=== PATIENT | female | born 1950 | race African-American/Black ===

== ENCOUNTER → 2017-05-16 | Outpatient (CLI) | payer MEDICARE, SELFPAY ==
--- NOTE | 2017-05-16 12:33 | MAM ---
History: Well woman exam. Date of exam: 05/16/2017 Services provided: Bilateral full field digital screening mammography. CAD, the images were reviewed with R2 computer aided detection. FINDINGS: Glandular tissue is nodular parenchymal contour with increased mammographic density. Comparison with 2013 exam. Stable parenchymal distribution. No dominant mass, architectural distortion or clustered microcalcification. IMPRESSION: Benign exam Recommendation: Routine annual mammography BIRAD CATEGORY: 2 BENIGN Electronically signed by: Tasneem Shah MD 05/16/2017 12:32 PM CDT Workstation: [id number]
== END | disposition home or self-care (01) ==
LOC: MAMMO 11:05
PROVIDERS: ATTEND Nurse Practitioner Family
DX: Z12.31 Encounter for screening mammogram for malignant neoplasm of breast (principal)

== ENCOUNTER → 2017-07-04 | Outpatient (CLI) | payer MEDICARE | END | disposition home or self-care (01) | LOC: YCFC.O 11:06 | PROVIDERS: ATTEND Nurse Practitioner Family | DX: E78.2 Mixed hyperlipidemia (principal); Z13.29 Encounter for screening for other suspected endocrine disorder ==

== ENCOUNTER → 2017-07-12 | Outpatient (CLI) | payer MEDICARE, MEDICAID ==
--- NOTE | 2017-07-15 09:00 | RAD ---
EXAM DESCRIPTION: Thoracic Spine,AP Lateral CLINICAL HISTORY: BACK PAIN. M51.9 FINDINGS/ IMPRESSION: Thoracic spondylosis with multilevel loss of disc height and endplate osteophyte ridging ventrally and right lateral. No fracture or subluxation. Mild kyphosis No lytic or blastic bony lesion Electronically signed by: Shine Gottlieb MD 07/15/2017 8:59 AM CDT
--- NOTE | 2017-07-15 09:04 | RAD ---
EXAM DESCRIPTION: Lumbar Spine 3 Views CLINICAL HISTORY: 67 years Female, BACK PAIN. M51.9 COMPARISON: None. FINDINGS: 3 views of the lumbar spine show vertebral body heights and intervertebral disc spaces to be maintained. Normal alignment of the lumbar spine is seen. Mild facet hypertrophic and degenerative changes from L4 through S1 are seen. Surgical clips from cholecystectomy are noted. There are mild bridging marginal endplate osteophytes at several levels of the lumbar spine. IMPRESSION: Mild disc degenerative changes of the lumbar spine are seen with facet arthropathy from L4 through S1. Electronically signed by: Miles Durham MD 07/15/2017 9:03 AM CDT
== END | disposition home or self-care (01) ==
LOC: RESP 13:52
PROVIDERS: ATTEND Nurse Practitioner Family
DX: M51.9 Unspecified thoracic, thoracolumbar and lumbosacral intervertebral disc disorder (principal); I25.83 Coronary atherosclerosis due to lipid rich plaque

== ENCOUNTER → 2017-11-08 | Outpatient (CLI) | payer MEDICARE, MEDICAID ==
--- NOTE | 2017-11-11 09:11 | RAD ---
EXAM DESCRIPTION: Knee,Left Complete CLINICAL HISTORY: 67 yearsFemale, PAIN COMPARISON: None. IMPRESSION: 3 views of the left knee demonstrate severe changes of osteoarthritis involving all 3 compartments of the knee. The findings are most pronounced in the medial tibiofemoral and patellofemoral compartments, where there is severe narrowing of the joint spaces and large marginal osteophytes. Patchy areas of subchondral sclerosis demonstrated in the medial femoral condyle and medial tibial plateau. There is no evidence of acute fracture or destructive osseous lesion. There is a suprapatellar joint effusion present. If indicated, MRI may further evaluate. Scattered vascular calcifications are present. Electronically signed by: Brian Quinones MD 11/11/2017 9:10 AM [facility]
== END ==
LOC: LAB.O 12:37
PROVIDERS: ATTEND Nurse Practitioner Family
DX: M17.12 Unilateral primary osteoarthritis, left knee (principal); M25.50 Pain in unspecified joint

== ENCOUNTER 2018-07-07 21:44 | Emergency (ER) | payer MEDICARE, MEDICAID ==
--- NOTE | 2018-07-07 22:24 | ED.PDOC ---
History of Present Illness - General Chief Complaint: Cardiovascular Problem Stated Complaint: rapid, irregular heart rate Time Seen by Provider: 07/07/18 21:58 Source: patient Exam Limitations: no limitations - History of Present Illness Initial Comments: Payton Beck 68 y/o female came to ER with feeling of rapid heart rate,chest and back discomfort which started about 2 hours ago took her atenolol about 2030 h tonight.Had been hospitalized recently for new onset a. fib started on NOAC and B-glory. and has cardiology appointment with Dr. Garrett tomorrow 08 July 2018. Timing/Duration: 1-3 hours Activities at Onset: rest Prior Chest Pain/Cardiac Workup: stress test Improving Factors: nothing Worsening Factors: nothing Nitro Today/Relief: no nitro taken today Aspirin Treatment Today: no aspirin today Associated Symptoms: other - see hpi Allergies/Adverse Reactions: Allergies Sulfa Antibiotics Allergy (Verified 07/07/18 21:59) Home Medications: Ambulatory Orders Cyclobenzaprine HCl 10 mg PO BEDTIME 07/04/18 Diclofenac Sodium [Voltaren] 75 mg PO BID 07/04/18 Fluticasone Prop 0.05% Nasal [Flonase Nasal Paia] 50 mcg NA DAILY 07/04/18 Metoprolol Succinate [Metoprolol Succinate ER] 50 mg PO BID 07/04/18 Non-Formulary Medication 1 tablet PO DAILY PRN 07/04/18 Triamterene & Hydrochlorothiaz [Triamterene/Hydrochloroth 37.5-25 mg] 1 tab PO DAILY 07/04/18 amLODIPine BESYLATE [Norvasc] 5 mg PO DAILY 07/04/18 Atorvastatin Calcium [Lipitor] 20 mg PO DAILY #30 tab 07/05/18 Esomeprazole Magnesium [Nexium] 20 mg PO DAILY #30 gra 07/05/18 Rivaroxaban [Xarelto] 20 mg PO DAILY #30 tablet 07/05/18 Review of Systems - Review of Systems Constitutional: States: no symptoms reported EENTM: States: no symptoms reported Respiratory: States: no symptoms reported Cardiology: States: see HPI Gastrointestinal/Abdominal: States: no symptoms reported Genitourinary: States: no symptoms reported Musculoskeletal: States: no symptoms reported Skin: States: no symptoms reported Neurological: States: no symptoms reported Past Medical History (General) - Patient Medical History Hx Seizures: No Hx Stroke: No Hx Dementia: No Hx Asthma: No Hx of COPD: No Hx Cardiac Disorders: Yes - A-Fib Hx Congestive Heart Failure: No Hx Pacemaker: No Hx Hypertension: Yes Hx Thyroid Disease: No Hx Diabetes: No Hx Gastroesophageal Reflux: Yes Hx Renal Disease: No Hx Cancer: No Hx of HIV: No Hx Hepatitis C: No Hx MRSA: No Surgical History: cholecystectomy, other - hyaterectomy - Vaccination History Hx Tetanus, Diphtheria Vaccination: No Hx Influenza Vaccination: No Hx Pneumococcal Vaccination: No - Social History Hx Alcohol Use: No Hx Substance Use: No Hx Physical Abuse: No Hx Emotional Abuse: No Family Medical History - Family History Mother Family History: No Known Hx Family Hypertension: Yes - mom Hx Cardiac Disease: Yes - siblings Hx Family Cancer: Yes - dad-colon Progress - Progress Progress: 07/07/18 23:03 Vital Signs - 8 hr 07/07/18 07/07/18 07/07/18 21:47 22:35 22:56 Temperature 98.4 F Pulse Rate [ 125 H 70 73 monitor] Respiratory 20 18 Rate Blood Pressure 146/86 135/78 [Left Arm] O2 Sat by Pulse 97 97 Oximetry 07/08/18 00:07 After giving Cardizem 25 mg iv and 30 mg po ventricular rate normalized;denies chest discomfort and has appointment with field representative/health education at 10 am tomorrow. - Results/Orders Results/Orders: 07/07/18 22:16 IV Care:Saline Lock per Protoc QSHIFT Telemetry .ONCE EKG Stat Pulse Ox Stat 07/07/18 22:21 EKG .ONCE 07/07/18 22:30 EKG STAT 07/07/18 22:45 EKG STAT Laboratory Results - last 24 hr 07/07/18 07/07/18 07/07/18 22:24 22:24 22:36 WBC 7.2 RBC 5.00 Hgb 14.2 Hct 42.9 MCV 85.8 MCH 28.3 MCHC 33.0 RDW 14.6 H Plt Count 299 MPV 7.2 L Absolute Neuts (auto) 4.00 Absolute Lymphs (auto) 2.30 Absolute Monos (auto) 0.70 Absolute Eos (auto) 0.00 Absolute Basos (auto) 0.10 Neutrophils % 56.2 Lymphocytes % 32.0 Monocytes % 10.3 H Eosinophils % 0.6 L Basophils % 0.9 PT 12.6 H INR 1.26 H PTT (SP) 34.3 H Sodium 137 Potassium 3.6 Chloride 98 L Carbon Dioxide 28 Anion Gap 14.6 BUN 15 Creatinine 1.01 BUN/Creatinine Ratio 14.9 Random Glucose 126 H Serum Osmolality 276.2 Calcium 9.4 Magnesium 1.9 Total Bilirubin 0.6 Direct Bilirubin 0.2 Indirect Bilirubin 0.4 AST 33 ALT 29 Alkaline Phosphatase 68 Creatine Kinase 172 H D CK-MB (CK-2) 2.2 CK-MB (CK-2) % Not Reportable Troponin I < 0.02 B-Natriuretic Peptide 9.1 Serum Total Protein 8.4 H Albumin 4.0 Urine Color Yellow Urine Appearance Clear Urine pH 7.0 Ur Specific Tabiona 1.010 Urine Protein Negative Urine Glucose (UA) Negative Urine Ketones Negative Urine Blood Trace-intact H Urine Nitrite Negative Urine Bilirubin Negative Urine Urobilinogen 0.2 Ur Leukocyte Esterase Negative Urine RBC 3-5 H Urine WBC 1-3 Ur Epithelial Cells 1-3 Urine Bacteria 0 07/07/18 23:28 WBC RBC Hgb Hct MCV MCH MCHC RDW Plt Count MPV Absolute Neuts (auto) Absolute Lymphs (auto) Absolute Monos (auto) Absolute Eos (auto) Absolute Basos (auto) Neutrophils % Lymphocytes % Monocytes % Eosinophils % Basophils % PT INR PTT (SP) Sodium Potassium Chloride Carbon Dioxide Anion Gap BUN Creatinine BUN/Creatinine Ratio Random Glucose Serum Osmolality Calcium Magnesium Total Bilirubin Direct Bilirubin Indirect Bilirubin AST ALT Alkaline Phosphatase Creatine Kinase CK-MB (CK-2) CK-MB (CK-2) % Troponin I < 0.02 B-Natriuretic Peptide Serum Total Protein Albumin Urine Color Urine Appearance Urine pH Ur Specific Tabiona Urine Protein Urine Glucose (UA) Urine Ketones Urine Blood Urine Nitrite Urine Bilirubin Urine Urobilinogen Ur Leukocyte Esterase Urine RBC Urine WBC Ur Epithelial Cells Urine Bacteria - EKG/XRAY/CT EKG: Atrial, Fibrillation Comments: HR-127 - Additional EKG/XRAY/Consults EKG #2: Atrial, Fibrillation Comments: HR-76 Departure - Departure Clinical Impression: Atrial fibrillation with RVR, Chest discomfort Time of Disposition: 00:10 Disposition: Discharge to Home or Self Care Condition: Fair Departure Forms: ED Discharge - Pt. Copy, Patient Portal Self Enrollment Instructions: Medicines for Atrial Fibrillation, Atrial Fibrillation (DC), Atrial Fibrillation, Controlling Your Blood Pressure Through Lifestyle, High Blood Pressure (DC), DASH Diet Referrals: Cassie Mccormick NP [Primary Care Provider] - 1-2 Weeks Home Medications: Ambulatory Orders Cyclobenzaprine HCl 10 mg PO BEDTIME 07/04/18 Diclofenac Sodium [Voltaren] 75 mg PO BID 07/04/18 Fluticasone Prop 0.05% Nasal [Flonase Nasal Paia] 50 mcg NA DAILY 07/04/18 Metoprolol Succinate [Metoprolol Succinate ER] 50 mg PO BID 07/04/18 Non-Formulary Medication 1 tablet PO DAILY PRN 07/04/18 Triamterene & Hydrochlorothiaz [Triamterene/Hydrochloroth 37.5-25 mg] 1 tab PO DAILY 07/04/18 amLODIPine BESYLATE [Norvasc] 5 mg PO DAILY 07/04/18 Atorvastatin Calcium [Lipitor] 20 mg PO DAILY #30 tab 07/05/18 Esomeprazole Magnesium [Nexium] 20 mg PO DAILY #30 gra 07/05/18 Rivaroxaban [Xarelto] 20 mg PO DAILY #30 tablet 07/05/18 Additional Instructions: Return to ER as needed;Keep appointment with field representative/health education Dr. Garrett at 10 am today;
[2018-07-07] MEDS ORDERED: diltiaZEM HCL TAB 30 MG TAB PO ONE (22:41)
[2018-07-08 00:13] VITALS: BP 120/73
[2018-07-08 00:22] VITALS: TEMP 97.8; O2SAT 97
== END 2018-07-08 00:22 | disposition home or self-care (01) ==
LOC: ER 21:44
DX: I48.91 Unspecified atrial fibrillation (principal); R00.0 Tachycardia, unspecified; R07.89 Other chest pain; I10 Essential (primary) hypertension; K21.9 Gastro-esophageal reflux disease without esophagitis; Z79.899 Other long term (current) drug therapy; Z88.2 Allergy status to sulfonamides

== ENCOUNTER 2018-10-29 10:16 | Emergency (ER) | payer MEDICARE, MEDICAID ==
[2018-10-29 10:33] VITALS: TEMP 99.5
--- NOTE | 2018-10-29 10:47 | ED.PDOC ---
History of Present Illness - General Chief Complaint: Cardiovascular Problem Stated Complaint: irregular heart rate Time Seen by Provider: 10/29/18 10:43 Source: patient, RN notes reviewed Exam Limitations: no limitations - History of Present Illness Initial Comments: SHE TOOK HER BP AT HOME AND NOTED THAT THE MONITOR READ IRREGULAR HEART BEAT. SHE MADE AN APPOINTMENT WITH HER PCP AND SAW THE ACCOUNT UNDERWRITER. AN EKG WAS OBTAINED AND NOTED PAC'S AND THE PATIENT WAS SENT HERE FOR ASSESSMENT. SHE VOICES OCCASIONAL SHARP PAIN TO THE CHEST THAT LAST SEVERAL SECONDS AND THEN DISAPPEAR AND ALSO THAT SHE HAS INTERMITTENT ATRIAL FIBRILLATION. HER [facility] IS DR. MARCELL STUBBS. Timing/Duration: days Location: central Activities at Onset: none Prior Chest Pain/Cardiac Workup: no prior chest pain Improving Factors: nothing Worsening Factors: nothing Nitro Today/Relief: no nitro taken today Associated Symptoms: chest pain Allergies/Adverse Reactions: Allergies Sulfa Antibiotics Allergy (Verified 07/07/18 21:59) Home Medications: Ambulatory Orders Cyclobenzaprine HCl 10 mg PO BEDTIME 07/04/18 Diclofenac Sodium [Voltaren] 75 mg PO BID 07/04/18 Fluticasone Prop 0.05% Nasal [Flonase Nasal [place]] 50 mcg NA DAILY 07/04/18 Metoprolol Succinate [Metoprolol Succinate ER] 50 mg PO BID 07/04/18 Non-Formulary Medication 1 tablet PO DAILY PRN 07/04/18 Triamterene & Hydrochlorothiaz [Triamterene/Hydrochloroth 37.5-25 mg] 1 tab PO DAILY 07/04/18 amLODIPine BESYLATE [Norvasc] 5 mg PO DAILY 07/04/18 Atorvastatin Calcium [Lipitor] 20 mg PO DAILY #30 tab 07/05/18 Esomeprazole Magnesium [Nexium] 20 mg PO DAILY #30 gra 07/05/18 Rivaroxaban [Xarelto] 20 mg PO DAILY #30 tablet 07/05/18 Review of Systems - Review of Systems Constitutional: States: no symptoms reported EENTM: States: no symptoms reported Respiratory: States: no symptoms reported Cardiology: States: chest pain, palpitations Gastrointestinal/Abdominal: States: no symptoms reported Genitourinary: States: no symptoms reported Musculoskeletal: States: no symptoms reported Skin: States: no symptoms reported Neurological: States: no symptoms reported Endocrine: States: no symptoms reported Hematologic/Lymphatic: States: no symptoms reported Past Medical History (General) - Patient Medical History Hx Seizures: No Hx Stroke: No Hx Dementia: No Hx Asthma: No Hx of COPD: No Hx Cardiac Disorders: Yes - A-Fib Hx Congestive Heart Failure: No Hx Pacemaker: No Hx Hypertension: Yes Hx Thyroid Disease: No Hx Diabetes: No Hx Gastroesophageal Reflux: Yes Hx Renal Disease: No Hx Cancer: No Hx of HIV: No Hx Hepatitis C: No Hx MRSA: No Surgical History: cholecystectomy, Hysterectomy - Vaccination History Hx Tetanus, Diphtheria Vaccination: No Hx Influenza Vaccination: No Hx Pneumococcal Vaccination: No - Social History Hx Tobacco Use: No Hx Alcohol Use: No Hx Substance Use: No Hx Physical Abuse: No Hx Emotional Abuse: No Family Medical History - Family History Mother Family History: No Known Hx Family Hypertension: Yes - mom Hx Cardiac Disease: Yes - siblings Hx Family Cancer: Yes - dad-colon Physical Exam - Physical Exam General Appearance: Alert, No apparent distress, Well Developed, Well Groomed, Well Hydrated, Well Nourished Eyes, Ears, Nose, Throat Exam: PERRL/EOMI, normal ENT inspection, TMs normal Neck: non-tender, full range of motion, supple, normal inspection Respiratory: chest non-tender, lungs clear, normal breath sounds, no respiratory distress, no accessory muscle use Cardiovascular/Chest: normal peripheral pulses, other - IRREGULAT HEART BEAT Peripheral Pulses: radial,right: 2+, radial,left: 2+ Gastrointestinal/Abdominal: normal bowel sounds, non tender, soft, no organomegaly, no pulsatile mass Extremity: normal range of motion, non-tender, normal inspection, no pedal edema , no calf tenderness Skin Exam: normal color Lymphatic: no adenopathy Progress - Progress Progress: 10/29/18 11:32 THE PATIENT IS ASYMPTOMATIC. THE CXR IS REPORTED: NO ACUTE PROCESS NOTED. EKG: HR OF 81, NJ INTERVAL OF 166, QRS OF 82, QTC OF 439, AXIS OF 55. IMPRESSION: SINUS RHYTHM, SINUS ARRHYTHMIA. 10/29/18 11:46 LABS ARE REPORTED AND NORMAL. WILL DC PATIENT - Results/Orders Results/Orders: 10/29/18 10:45 EKG STAT Laboratory Results WBC 5.3 K/mm3 (4.8-10.8) 10/29/18 10:44 RBC 4.65 M/mm3 (4.20-5.40) 10/29/18 10:44 Hgb 13.2 gm/dL (12.0-16.0) 10/29/18 10:44 Hct 39.7 % (36.0-47.0) 10/29/18 10:44 MCV 85.4 fl (81.0-99.0) 10/29/18 10:44 MCH 28.3 pg (27.0-31.0) 10/29/18 10:44 MCHC 33.2 g/dL (33.0-37.0) 10/29/18 10:44 RDW 14.1 % (11.5-14.5) 10/29/18 10:44 Plt Count 285 K/mm3 (130-400) 10/29/18 10:44 MPV 7.2 fl (7.40-10.4) L 10/29/18 10:44 Absolute Neuts (auto) 3.60 K/uL (1.8-6.8) 10/29/18 10:44 Absolute Lymphs (auto) 1.20 K/uL (1.0-3.4) 10/29/18 10:44 Absolute Monos (auto) 0.40 K/uL (0.2-0.8) 10/29/18 10:44 Absolute Eos (auto) 0.00 K/uL (0.0-0.4) 10/29/18 10:44 Absolute Basos (auto) 0.00 K/uL (0.0-0.1) 10/29/18 10:44 Neutrophils % 68.8 % (42.0-78.0) 10/29/18 10:44 Lymphocytes % 22.8 % (20.0-50.0) 10/29/18 10:44 Monocytes % 7.2 % (2.0-9.0) 10/29/18 10:44 Eosinophils % 0.6 % (1.0-5.0) L 10/29/18 10:44 Basophils % 0.6 % (0.0-2.0) 10/29/18 10:44 Sodium 138 mmol/L (135-145) 10/29/18 10:44 Potassium 3.4 mmol/L (3.6-5.0) L 10/29/18 10:44 Chloride 101 mmol/L (101-111) 10/29/18 10:44 Carbon Dioxide 29 mmol/L (21-31) 10/29/18 10:44 Anion Gap 11.4 (12-18) L 10/29/18 10:44 BUN 11 mg/dL (7-18) 10/29/18 10:44 Creatinine 0.66 mg/dL (0.6-1.3) 10/29/18 10:44 BUN/Creatinine Ratio 16.7 (10-20) 10/29/18 10:44 Random Glucose 127 mg/dL (70-105) H 10/29/18 10:44 Serum Osmolality 276.7 mOsm/L (275-295) 10/29/18 10:44 Calcium 9.1 mg/dL (8.4-10.2) 10/29/18 10:44 Total Bilirubin 0.5 mg/dL (0.2-1.0) 10/29/18 10:44 AST 15 IU/L (10-42) 10/29/18 10:44 ALT 13 IU/L (10-60) 10/29/18 10:44 Alkaline Phosphatase 89 IU/L (42-121) 10/29/18 10:44 Troponin I < 0.02 ng/mL (0.01-0.05) 10/29/18 10:45 Serum Total Protein 7.9 gm/dL (6.4-8.2) 10/29/18 10:44 Albumin 3.6 g/dl (3.2-5.5) 10/29/18 10:44 Globulin 4.3 gm/dL (2.3-3.5) H 10/29/18 10:44 Albumin/Globulin Ratio 0.8 (1.1-1.9) L 10/29/18 10:44 Departure - Departure Clinical Impression: Heart palpitations, PAC (premature atrial contraction) Time of Disposition: 11:47 Disposition: Discharge to Home or Self Care Condition: Good Departure Forms: ED Discharge - Pt. Copy, Patient Portal Self Enrollment Instructions: DI for Chest Pain Diet: resume usual diet Activity: increase activity as tolerated Referrals: Cassie Mccormick NP [Primary Care Provider] - 1-2 Weeks Home Medications: Ambulatory Orders Cyclobenzaprine HCl 10 mg PO BEDTIME 07/04/18 Diclofenac Sodium [Voltaren] 75 mg PO BID 07/04/18 Fluticasone Prop 0.05% Nasal [Flonase Nasal [place]] 50 mcg NA DAILY 07/04/18 Metoprolol Succinate [Metoprolol Succinate ER] 50 mg PO BID 07/04/18 Non-Formulary Medication 1 tablet PO DAILY PRN 07/04/18 Triamterene & Hydrochlorothiaz [Triamterene/Hydrochloroth 37.5-25 mg] 1 tab PO DAILY 07/04/18 amLODIPine BESYLATE [Norvasc] 5 mg PO DAILY 07/04/18 Atorvastatin Calcium [Lipitor] 20 mg PO DAILY #30 tab 07/05/18 Esomeprazole Magnesium [Nexium] 20 mg PO DAILY #30 gra 07/05/18 Rivaroxaban [Xarelto] 20 mg PO DAILY #30 tablet 07/05/18 Additional Instructions: FOLLOW UP WITH DR. STUBBS
--- NOTE | 2018-10-29 11:27 | RAD ---
EXAM DESCRIPTION: Chest,1 View CLINICAL HISTORY: chest pain COMPARISON: 04 July 2018 TECHNIQUE: AP portable chest FINDINGS: The lungs are clear. There is no infiltrate or effusion. The heart is normal size. IMPRESSION: Normal portable chest Electronically signed by: Victor Manuel Barber MD 10/29/2018 11:26 AM [facility]
[2018-10-29 12:08] VITALS: BP 124/67; O2SAT 98
== END 2018-10-29 12:08 | disposition home or self-care (01) ==
LOC: ER 10:16
DX: R00.2 Palpitations (principal); I49.1 Atrial premature depolarization; I48.91 Unspecified atrial fibrillation; I10 Essential (primary) hypertension; K21.9 Gastro-esophageal reflux disease without esophagitis; Z79.899 Other long term (current) drug therapy; Z88.2 Allergy status to sulfonamides

== ENCOUNTER 2020-11-21 13:05 | Emergency (ER) | payer MEDICARE, OTHER ==
[2020-11-21] MEDS ORDERED: predniSONE 20 MG TAB PO ONE (13:25)
[2020-11-21] MEDS ORDERED: CYCLOBENZAPRINE HCL 5 MG TAB PO ONE (13:25)
--- NOTE | 2020-11-21 13:28 | ED.PDOC ---
History of Present Illness - General Chief Complaint: General Stated Complaint: pain in right shoulder and arm Time Seen by Provider: 11/21/20 13:06 Source: patient Exam Limitations: no limitations - History of Present Illness Initial Comments: The patient is a 70-year-old female presented emergency room secondary to pain in her right arm. The patient does have known carpal tunnel on the right that she does not have addressed this point. She does have pain radiating up from the carpal tunnel. Additionally she has pain at the anterior right shoulder over the proximal biceps tendons. It is difficult to tell if it is entirely just the biceps tendon or if there is some inflammation at the lateral aspect of the pectoralis insertion as well. She does appear to be grossly neurovascularly preserved. No recent trauma. Passive range of motion is preserved. No pain over the AC joint. No neck pain. The patient is pleasant and cooperative. Timing/Duration: 1 week Severity: moderate Improving Factors: immobilization Worsening Factors: movement Associated Symptoms: denies symptoms Allergies/Adverse Reactions: Allergies Sulfa Antibiotics Allergy (Verified 11/21/20 13:21) Home Medications: Ambulatory Orders Cyclobenzaprine HCl [Cyclobenzaprine Hydrochlo] 10 mg PO BEDTIME 07/04/18 Diclofenac Sodium [Voltaren] 75 mg PO BID 07/04/18 Fluticasone Prop 0.05% Nasal [Flonase Nasal Kathleen] 50 mcg NA DAILY 07/04/18 Metoprolol Succinate [Metoprolol Succinate ER] 50 mg PO BID 07/04/18 Triamterene & Hydrochlorothiaz [Triamterene/Hydrochloroth 37.5-25 mg] 1 tab PO DAILY 07/04/18 Atorvastatin Calcium [Lipitor] 20 mg PO DAILY #30 tab 07/05/18 Esomeprazole Magnesium [Nexium] 20 mg PO DAILY #30 gra 07/05/18 Diltiazem HCl Coated Beads [Cartia Xt] 240 mg PO DAILY 11/21/20 Levocarnitine 5 mg PO DAILY 11/21/20 predniSONE [Prednisone] 40 mg PO DAILY #14 tab 11/21/20 Review of Systems - Review of Systems Constitutional: States: no symptoms reported EENTM: States: no symptoms reported Respiratory: States: no symptoms reported Cardiology: States: no symptoms reported Gastrointestinal/Abdominal: States: no symptoms reported Genitourinary: States: no symptoms reported Musculoskeletal: States: see HPI Skin: States: no symptoms reported Neurological: States: no symptoms reported Endocrine: States: no symptoms reported All other Systems: No Change from Baseline Past Medical History (General) - Patient Medical History Hx Seizures: No Hx Stroke: No Hx Dementia: No Hx Asthma: No Hx of COPD: No Hx Cardiac Disorders: Yes - A-Fib Hx Congestive Heart Failure: No Hx Pacemaker: No Hx Hypertension: Yes Hx Thyroid Disease: No Hx Diabetes: No Hx Gastroesophageal Reflux: Yes Hx Renal Disease: No Hx Cancer: No Hx of HIV: No Hx Hepatitis C: No Hx MRSA: No - Vaccination History Hx Tetanus, Diphtheria Vaccination: No Hx Influenza Vaccination: No Hx Pneumococcal Vaccination: No - Social History Hx Tobacco Use: No Hx Alcohol Use: No Hx Substance Use: No Hx Physical Abuse: No Hx Emotional Abuse: No Family Medical History - Family History Mother Family History: No Known Hx Family Hypertension: Yes - mom Hx Cardiac Disease: Yes - siblings Hx Family Cancer: Yes - dad-colon Physical Exam - Physical Exam General Appearance: Alert, Comfortable, No apparent distress Eye Exam: bilateral normal Ears, Nose, Throat: hearing grossly normal Neck: non-tender, supple Respiratory: no respiratory distress, no accessory muscle use Cardiovascular/Chest: normal peripheral pulses, no edema Peripheral Pulses: radial,right: 2+, radial,left: 2+ Gastrointestinal/Abdominal: other - Obese Rectal Exam: deferred Extremity: no calf tenderness, normal capillary refill, other - See above 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 There may be some overlying inflammation of the lateral pectoralis musc le as well. Additionally the patient does have known carpal tunnel on the right that may be contributing to symptoms as well. The patient is to take her Flexeril up to 3 times a day as needed. She does need to be careful as this can make her drowsy. The patient will also be written for a week's worth of oral prednisone to take in the morning to help reduce inflammation. Topical heat can be applied over the areas which may also help. She does need to sleep with a wrist splint. This will help with the carpal tunnel component. She does need to do stretching exercises of the right shoulder to help with the biceps tendinitis. I do want her to follow back up with her primary care doctor in the coming week. ER warnings are given. [email or web address] connors [id number] Departure - Departure Clinical Impression: Carpal tunnel syndrome of right wrist, Biceps tendinitis of right shoulder Disposition: Discharge to Home or Self Care Condition: Fair Departure Forms: ED Discharge - Pt. Copy, Patient Portal Self Enrollment Instructions: Tendonitis (DC) Diet: regular diet Activity: increase activity as tolerated Referrals: Cassie Mccormick NP [Primary Care Provider] - 1-2 Weeks Prescriptions: predniSONE [Prednisone] 40 mg PO DAILY #14 tab Home Medications: Ambulatory Orders Cyclobenzaprine HCl [Cyclobenzaprine Hydrochlo] 10 mg PO BEDTIME 07/04/18 Diclofenac Sodium [Voltaren] 75 mg PO BID 07/04/18 Fluticasone Prop 0.05% Nasal [Flonase Nasal Kathleen] 50 mcg NA DAILY 07/04/18 Metoprolol Succinate [Metoprolol Succinate ER] 50 mg PO BID 07/04/18 Triamterene & Hydrochlorothiaz [Triamterene/Hydrochloroth 37.5-25 mg] 1 tab PO DAILY 07/04/18 Atorvastatin Calcium [Lipitor] 20 mg PO DAILY #30 tab 07/05/18 Esomeprazole Magnesium [Nexium] 20 mg PO DAILY #30 gra 07/05/18 Diltiazem HCl Coated Beads [Cartia Xt] 240 mg PO DAILY 11/21/20 Levocarnitine 5 mg PO DAILY 11/21/20 predniSONE [Prednisone] 40 mg PO DAILY #14 tab 11/21/20 Additional Instructions: The patient is a 70-year-old -[place] female presented emergency room secondary to what appears to be pain over the proximal biceps insertion on the right. There may be some overlying inflammation of the lateral pectoralis muscle as well. Additionally the patient does have known carpal tunnel on the right that may be contributing to symptoms as well. The patient is to take her Flexeril up to 3 times a day as needed. She does need to be careful as this can make her drowsy. The patient will also be written for a week's worth of oral prednisone to take in the morning to help reduce inflammation. Topical heat can be applied over the areas which may also help. She does need to sleep with a wrist splint. This will help with the carpal tunnel component. She does need to do stretching exercises of the right shoulder to help with the biceps tendinitis. I do want her to follow back up with her primary care doctor in the coming week. ER warnings are given.
[2020-11-21 13:35] VITALS: TEMP 97.6
[2020-11-21 14:07] VITALS: BP 175/87; O2SAT 98
== END 2020-11-21 13:42 | disposition home or self-care (01) ==
LOC: ER 13:05
DX: G56.01 Carpal tunnel syndrome, right upper limb (principal); M75.21 Bicipital tendinitis, right shoulder; I48.91 Unspecified atrial fibrillation; I10 Essential (primary) hypertension; K21.9 Gastro-esophageal reflux disease without esophagitis; Z79.899 Other long term (current) drug therapy; Z88.2 Allergy status to sulfonamides